=== PATIENT | male | born 1970 | race African-American/Black ===

== ENCOUNTER 2021-02-28 12:29 | Emergency (ER) | payer MEDICARE, MEDICAID ==
[~2021-02-28] VITALS: Ht 175.3 cm; Wt 83.0 kg
[2021-02-28] MEDS ORDERED: METHYLPREDNISOLONE SOD SUCC 125 MG/2 ML VIAL IM STA (13:21)
[2021-02-28] MEDS ORDERED: DIPH25CA83 PO (13:32)
[2021-02-28] MEDS ORDERED: P50 PO (13:32)
[2021-02-28] MEDS ORDERED: SULF1TAB48 MT (13:32)
[2021-02-28 14:15] VITALS: BP 104/95
== END 2021-02-28 14:16 | disposition home or self-care (01) ==
LOC: ER 12:29
DX: T78.40XA Allergy, unspecified, initial encounter (principal); I10 Essential (primary) hypertension; X58.XXXA Exposure to other specified factors, initial encounter
CPT/HCPCS: 96372; 99283; J2930